=== PATIENT | female | born 1940 | race American Indian/Alaskan Native ===

== ENCOUNTER 2021-07-23 16:47 | Inpatient (IN) | payer MEDICARE ==
[2021-07-23] MEDS: traZODone 50 MG TAB PO SCH (22:41)
[2021-07-24] MEDS ORDERED: NON-FORMULARY EACH (Insulin Aspart (Nf) 100 UNIT/ML Units) SQ PRN (08:29)
[2021-07-24] MEDS ORDERED: ACETAMINOPHEN PO SCH (08:30)
[2021-07-24] MEDS ORDERED: OXYCODONE HCL PO SCH (08:30)
[2021-07-24] MEDS ORDERED: [UNRECOGNIZED DRUG - OTHER] PO SCH (08:30)
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
[2021-07-24] MEDS ORDERED: oxyCODONE 5 MG TAB PO PRN (09:16)
[2021-07-24] MEDS: SERTRALINE 25 MG TAB PO SCH (09:45)
[2021-07-24] MEDS: oxyCODONE 5 MG TAB PO PRN ×2 (09:49→21:22)
[2021-07-24] MEDS: ACETAMINOPHEN 325 MG TAB PO PRN (10:00)
[2021-07-24] MEDS ORDERED: oxyCODONE 5 MG TAB PO SCH (12:00)
[2021-07-24] MEDS ORDERED: ACETAMINOPHEN 325 MG TAB PO SCH (12:00)
[2021-07-24] MEDS: LEVOTHYROXINE 100 MCG TAB PO SCH (13:19)
[2021-07-24] MEDS: MELOXICAM 7.5 MG TAB PO SCH (13:25)
[2021-07-24] MEDS: GABAPENTIN 300 MG CAP PO SCH ×2 (13:25→20:36)
[2021-07-24] MEDS ORDERED: DEXTROSE 50% IN WATER (25GM) 50 ML SYRINGE IV PRN (14:17)
--- NOTE | 2021-07-24 14:20 | Consultation ---
History of Present Illness - Reason for Consult Consult date: 07/24/21 medical management Requesting physician: BOOM GOLD - History of Present Illness 81-year-old female with pmhx of DM2, hypothyroidism, recent left knee procedure admitted for acute psychosis. Per report, patient hallucinating, hearing voices, seeing things and threatening daughter and caregiver. Internal medicine service consulted for medical management. On my encounter, patient only comp laint was pain in left knee this AM. She states that pain has been uncontrolled. She states that the only pain medication should like to avoid is oxycontin as "the last place I got that, I got short of breath". Patient states she is otherwise recovering well. She states that since the procedure she has been able to walk properly. Patient denied any [place], CP, SOB, N/V/D/C, abdominal pain. Remainder of ROS negative except for stated above. Regarding her type 2 diabetes, the patient states she takes 10 units regular insulin with meals and 20 units long acting at night. She could not recall her A1c or fasting blood sugars. Past History Past Medical History: diabetes, hypothyroidism Past Surgical History: total knee replacement Social history: smoking (smokes when she can but does not smoke consistently.) Family history: no significant family history Medications and Allergies Allergies Allergy/AdvReac Type Severity Reaction Status Date / Time Penicillins Allergy Hives Verified 03/03/18 02:43 Home Medications Medication Instructions Recorded Confirmed Last Taken Type Gabapentin 300 mg PO TID 07/23/21 07/23/21 Unknown History Insulin Aspart (Nf) [NovoLOG 100 1 - 6 units SQ UNK PRN 07/23/21 07/23/21 Unknown History UNITS/ML VIAL] Levothyroxine [Synthroid] 100 mcg PO QAM 07/23/21 07/23/21 07/22/21 History Meloxicam [Mobic] 7.5 mg PO QDAY 07/23/21 07/23/21 Unknown History Oxycodone HCl/Acetaminophen 1 - 2 tab PO Q6H 07/23/21 07/23/21 Unknown History [Oxycodone-Acetaminophn 7.5-325] Quetiapine Fumarate [SEROquel] 50 mg PO QHS 07/23/21 07/23/21 Unknown History Sertraline [Zoloft] 25 mg PO QDAY 07/23/21 07/24/21 Unknown History hydrOXYzine HCL [Atarax] 25 mg PO QHS 07/23/21 07/23/21 Unknown History Active Meds: Active Medications Acetaminophen (Acetaminophen 325 Mg Tab) 325 mg PO Q4H PRN PRN Reason: Pain, Moderate (4-6) Last Admin: 07/24/21 10:00 Dose: 325 mg Gabapentin (Gabapentin 300 Mg Cap) 300 mg PO TID [facility] Last Admin: 07/24/21 13:25 Dose: 300 mg Hydroxyzine HCl (Hydroxyzine Hcl 25 Mg Tab) 25 mg PO QHS [facility] Levothyroxine Sodium (Levothyroxine 100 Mcg Tab) 100 mcg PO DAILY@0600 [facility] Last Admin: 07/24/21 13:19 Dose: 100 mcg Meloxicam (Meloxicam 7.5 Mg Tab) 7.5 mg PO QDAY [facility] Last Admin: 07/24/21 13:25 Dose: 7.5 mg Miscellaneous Medication (Insulin Aspart (Nf)) 1 - 6 units SQ UNK PRN PRN Reason: Diabetes Oxycodone HCl (Oxycodone 5 Mg Tab) 7.5 mg PO Q4H PRN PRN Reason: Pain, Moderate (4-6) Last Admin: 07/24/21 09:49 Dose: 7.5 mg Quetiapine Fumarate (Quetiapine 25 Mg Tab) 50 mg PO QHS [facility] Sertraline HCl (Sertraline 25 Mg Tab) 25 mg PO QDAY [facility] Last Admin: 07/24/21 09:45 Dose: 25 mg Trazodone HCl (Trazodone 50 Mg Tab) 50 mg PO QHS [facility] Last Admin: 07/23/21 22:41 Dose: 50 mg Review of Systems Integumentary: other (left knee pain.) Exam - Physical Exam Narrative exam: Physical Exam: VITAL SIGNS: Reviewed. GENERAL: The patient appears normally developed, Vital signs as documented. pleasant elderly women HEAD: No signs of head trauma. EYES: Pupils are equal. Extraocular motions intact. EARS: Hearing grossly intact. MOUTH: Oropharynx is normal. NECK: No adenopathy, no JVD. CHEST: Chest with clear breath sounds bilaterally. No wheezes, rales, or rhonchi. CARDIAC: Regular rate and rhythm. S1 and S2, without murmurs, gallops, or rubs. VASCULAR: No Edema. Peripheral pulses normal and equal in all extremities. ABDOMEN: Soft, non tender and non distended. No rebound or guarding, and no masses palpated. Bowel Sounds normal. MUSCULOSKELETAL: Good range of motion of all major joints. Extremities without clubbing, cyanosis or edema. NEUROLOGIC EXAM: Alert and oriented x 4. no focal sensory or strength deficits. PSYCHIATRIC: Mood normal at the time of encounter. SKIN: detail exam as documented in skin assessment. healing surgical scar left knee with overlying dressing. - Constitutional Vitals: Temp Pulse Resp BP Pulse Ox 98.1 F 88 17 149/79 97 07/23/21 19:25 07/23/21 19:25 07/23/21 19:25 07/23/21 19:25 07/23/21 19:25 Results - Labs Labs: Abnormal lab results 07/24/21 07/24/21 07/24/21 Range/Units 00:48 05:58 11:26 POC Glucose 209 H 201 H 230 H (70-105) mg/dL Assessment and Plan #Acute psychosis #history of Dementia #Type 2 Diabetes Mellitus #Hypothyroidism #Recent left knee repair in june 2021 #Advance care planning Disease education conducted, care plan discussed, diagnoses discussed, prognosis discussed, patient is full code. Patient acknowledged understanding and agreement with care plan, +30 minutes. Plan -Psychiatric medication management per inpatient psych service -Monitor blood pressure daily - accuchecks ac/hs -Monitor QTC - Blood sugar in 230's, only sliding scale insulin ordered at this time. - Home regimen regular insulin 10 units ac and long acting 20 units qhs. Can reintroduce for better control - agree with wound care consultation for left knee incision. - percocet for pain control, follow up renal profile, if renal function ok, can add toradol. - Resume home levothyroxine. - agree with CBC, CMP, lipid panel, tsh, a1c ordered, will follow up. Internal medicine service will continue to follow
[2021-07-24] MEDS ORDERED: DEXTROSE 10% *Hypoglycemia IV PRN (15:00)
[2021-07-24] MEDS: INSULIN LISPRO 100 UNIT/ML SUB-Q SCH ×3 (17:00→22:33)
[2021-07-24] MEDS: traZODone 50 MG TAB PO SCH (21:26)
[2021-07-24] MEDS: hydrOXYzine HCL 25 MG TAB PO SCH (21:27)
[2021-07-24] MEDS: QUEtiapine 25 MG TAB PO SCH (21:27)
[2021-07-24 21:59] LABS: Basophils # (Auto) 0.1 K/mm3 (0.0-0.1); Basophils % (Auto) 1.1 % (0.0-1.8); Eosinophils # (Auto) 0.1 K/mm3 (0.0-0.4); Eosinophils % (Auto) 1.1 % (0.0-4.3); Hematocrit 31.8 % (30.3-42.9); Hemoglobin 9.9 gm/dl (10.1-14.3); Mean Corpuscular HGB Conc 31 % (30-34); Mean Corpuscular Volume 80 fl (79-97); Monocytes # (Auto) 0.6 K/mm3 (0.0-0.8); Monocytes % (Auto) 8.8 % (0.0-7.3); Platelet Count 413 K/mm3 (140-440); Red Blood Count 3.96 M/mm3 (3.65-5.03)
[2021-07-24] MEDS ORDERED: NON-FORMULARY EACH (Quetiapine Fumarate [Seroquel] 50 MG Tablet) PO SCH (22:00)
[2021-07-24 22:17] LABS: Albumin 3.9 g/dL (3.9-5); Calcium 9.6 mg/dL (8.4-10.2); Chol/HDL Ratio 2.63 %
[2021-07-24 22:46] LABS: Hepatitis B Surface Antigen Non-Reactive (Negative); Hepatitis C Virus Antibody Non-Reactive (NonReactive)
[2021-07-25] MEDS: LEVOTHYROXINE 100 MCG TAB PO SCH (05:45)
[2021-07-25] MEDS: INSULIN LISPRO 100 UNIT/ML SUB-Q SCH ×4 (08:40→21:08)
[2021-07-25] MEDS: MELOXICAM 7.5 MG TAB PO SCH (09:00)
[2021-07-25] MEDS: SERTRALINE 25 MG TAB PO SCH (09:00)
[2021-07-25] MEDS: oxyCODONE 5 MG TAB PO PRN ×2 (09:00→13:27)
[2021-07-25] MEDS: GABAPENTIN 300 MG CAP PO SCH ×3 (09:02→20:26)
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
[2021-07-25] MEDS: traZODone 50 MG TAB PO SCH (21:07)
[2021-07-25] MEDS: hydrOXYzine HCL 25 MG TAB PO SCH (21:07)
[2021-07-25] MEDS: QUEtiapine 25 MG TAB PO SCH (21:07)
[2021-07-26] MEDS: LEVOTHYROXINE 100 MCG TAB PO SCH (05:52)
[2021-07-26] MEDS: INSULIN LISPRO 100 UNIT/ML SUB-Q SCH ×4 (08:08→21:04)
[2021-07-26] MEDS: GABAPENTIN 300 MG CAP PO SCH ×3 (08:09→20:31)
[2021-07-26] MEDS: oxyCODONE 5 MG TAB PO PRN ×3 (08:30→21:04)
--- NOTE | 2021-07-26 09:03 | Progress Note ---
Subjective Date of service: 07/26/21 Subjective Comment: 07/26/21: The patient was seen today, she patient complain of knee pain but states she feels better " I slept like a log." She continues to talk about the people at her assisted living and how they plan it. She denies any current suicidal/homicidal ideation and denies hallucinations. 07/25/21: The patient was seen eating breakfast. She is calm but continues to be paranoid " who planned it? they were putting something in my coffee, I know you think I'm crazy. " The patient reports sleep and appetite as good. She denies any current suicidal/homicidal ideation and denies hallucinations. REVIEW OF SYSTEMS Constitutional: Negative for weight loss ENT: Negative for stridor Respiratory: Negative for cough or hemoptysis All other systems reviewed and are negative MENTAL STATUS EXAMINATION General Appearance and Behavior: Age appropriate, good hygiene, wearing appropriate clothes, fair eye contact, cooperative, trembling Cooperation: Participating/engaged, but Guarded Psychomotor Behavior: Psychomotor normal Mood: "ok" Affect and affective range: constricted Thought Process: illogical Thought Content: Paranoid Speech: normal tone and pace Suicidal Ideation: Denies Homicidal Ideation: Denies Denies Hallucinations: Denies Impulse Control: limited Insight and Judgment: Poor insight and judgment Memory: Limited Attention: Divided Orientation: Alert, oriented Assessment and Plan Neurocognitive with behavioral disturbance Treatment Plan Patient admitted for inpatient psychiatric evaluation, medication adjustment and close monitoring The patient's behavior, mood, sleep and appetite will be closely monitored. Patient enrolled in individual and group therapeutic sessions and encouraged to attend. Patient provided with a safe and structured environment. Patient's physical health needs will be addressed by the Hospitalist. Hospitalist Consulted Labs including CBC, CMP, Lipid profile and Hemoglobin A1C levels ordered for baseline reference Social Assessment will be completed and the Asbestos Shingle Inspector will work with patient and family to ensure a suitable and safe disposition Medication adjustment will be made as clinically indicated Continue meds Usual Wellness Cheondoism/Preservation: - Start Trazodone 50 mg po QHS & 50 mg po QHS PRN between 10 PM & 2 AM for insomnia - Start Melatonin 5 mg po QHS to promote circadian rhythm The patient agreed on the treatment plan, understood the risk, benefit, alternative treatment, potential consequence of no treatment, and gave informed consent. Estimated days:6 Post hospital care: primary care provider, psychiatric provider Case staffed with Dr. Montiel Legal Status: Voluntary Reaction to Hospitalization: Accepting Medications and Allergies Medications and Allergies Allergies Allergy/AdvReac Type Severity Reaction Status Date / Time Penicillins Allergy Hives Verified 03/03/18 02:43 Home Medications Medication Instructions Recorded Confirmed Last Taken Type Gabapentin 300 mg PO TID 07/23/21 07/23/21 Unknown History Insulin Aspart (Nf) [NovoLOG 100 1 - 6 units SQ UNK PRN 07/23/21 07/23/21 Unknown History UNITS/ML VIAL] Levothyroxine [Synthroid] 100 mcg PO QAM 07/23/21 07/23/21 07/22/21 History Meloxicam [Mobic] 7.5 mg PO QDAY 07/23/21 07/23/21 Unknown History Oxycodone HCl/Acetaminophen 1 - 2 tab PO Q6H 07/23/21 07/23/21 Unknown History [Oxycodone-Acetaminophn 7.5-325] Quetiapine Fumarate [SEROquel] 50 mg PO QHS 07/23/21 07/23/21 Unknown History Sertraline [Zoloft] 25 mg PO QDAY 07/23/21 07/24/21 Unknown History hydrOXYzine HCL [Atarax] 25 mg PO QHS 07/23/21 07/23/21 Unknown History Active Meds: Active Medications Acetaminophen (Acetaminophen 325 Mg Tab) 325 mg PO Q4H PRN PRN Reason: Pain, Moderate (4-6) Last Admin: 07/24/21 10:00 Dose: 325 mg Dextrose (Dextrose 10% *Hypoglycemia) 0 ml IV PRN PRN PRN Reason: Hypoglycemia Gabapentin (Gabapentin 300 Mg Cap) 300 mg PO TID [facility] Last Admin: 07/26/21 08:09 Dose: 300 mg Hydroxyzine HCl (Hydroxyzine Hcl 25 Mg Tab) 25 mg PO QHS [facility] Last Admin: 07/25/21 21:07 Dose: 25 mg Insulin Human Lispro (Insulin Lispro 100 Unit/Ml) 0 unit SUB-Q [facility]; Protocol Last Admin: 07/26/21 08:08 Dose: 2 unit Levothyroxine Sodium (Levothyroxine 100 Mcg Tab) 100 mcg PO DAILY@0600 [facility] Last Admin: 07/26/21 05:52 Dose: 100 mcg Meloxicam (Meloxicam 7.5 Mg Tab) 7.5 mg PO QDAY [facility] Last Admin: 07/25/21 09:00 Dose: 7.5 mg Oxycodone HCl (Oxycodone 5 Mg Tab) 7.5 mg PO Q4H PRN PRN Reason: Pain, Moderate (4-6) Last Admin: 07/26/21 08:30 Dose: 7.5 mg Quetiapine Fumarate (Quetiapine 25 Mg Tab) 50 mg PO QHS [facility] Last Admin: 07/25/21 21:07 Dose: 50 mg Sertraline HCl (Sertraline 25 Mg Tab) 25 mg PO QDAY [facility] Last Admin: 07/25/21 09:00 Dose: 25 mg Trazodone HCl (Trazodone 50 Mg Tab) 50 mg PO QHS [facility] Last Admin: 07/25/21 21:07 Dose: 50 mg Results - Results Labs/Vitals: Laboratory Last Values WBC 7.1 K/mm3 (4.5-11.0) 07/24/21 20:58 RBC 3.96 M/mm3 (3.65-5.03) 07/24/21 20:58 Hgb 9.9 gm/dl (10.1-14.3) L 07/24/21 20:58 Hct 31.8 % (30.3-42.9) 07/24/21 20:58 MCV 80 fl (79-97) 07/24/21 20:58 MCH 25 pg (28-32) L 07/24/21 20:58 MCHC 31 % (30-34) 07/24/21 20:58 RDW 15.0 % (13.2-15.2) 07/24/21 20:58 Plt Count 413 K/mm3 (140-440) 07/24/21 20:58 Lymph % (Auto) 28.0 % (13.4-35.0) 07/24/21 20:58 [place] % (Auto) 8.8 % (0.0-7.3) H 07/24/21 20:58 Eos % (Auto) 1.1 % (0.0-4.3) 07/24/21 20:58 Baso % (Auto) 1.1 % (0.0-1.8) 07/24/21 20:58 Lymph # (Auto) 2.0 K/mm3 (1.2-5.4) 07/24/21 20:58 [place] # (Auto) 0.6 K/mm3 (0.0-0.8) 07/24/21 20:58 Eos # (Auto) 0.1 K/mm3 (0.0-0.4) 07/24/21 20:58 Baso # (Auto) 0.1 K/mm3 (0.0-0.1) 07/24/21 20:58 Seg Neutrophils % 61.0 % (40.0-70.0) 07/24/21 20:58 Seg Neutrophils # 4.3 K/mm3 (1.8-7.7) 07/24/21 20:58 Sodium 135 mmol/L (137-145) L 07/24/21 20:58 Potassium 4.0 mmol/L (3.6-5.0) 07/24/21 20:58 Chloride 96.7 mmol/L (98-107) L 07/24/21 20:58 Carbon Dioxide 25 mmol/L (22-30) 07/24/21 20:58 Anion Gap 17 mmol/L 07/24/21 20:58 BUN 26 mg/dL (7-17) H 07/24/21 20:58 Creatinine 1.4 mg/dL (0.6-1.2) H 07/24/21 20:58 Estimated GFR 43 ml/min 07/24/21 20:58 BUN/Creatinine Ratio 19 % 07/24/21 20:58 Glucose 209 mg/dL (65-100) H 07/24/21 20:58 POC Glucose 182 mg/dL (70-105) H 07/26/21 07:31 Hemoglobin A1c 8.6 % (4-6) H 07/24/21 20:58 Calcium 9.6 mg/dL (8.4-10.2) 07/24/21 20:58 Total Bilirubin 0.30 mg/dL (0.1-1.2) 07/24/21 20:58 AST 22 units/L (5-40) 07/24/21 20:58 ALT 16 units/L (7-56) 07/24/21 20:58 Alkaline Phosphatase 79 units/L (35-129) 07/24/21 20:58 Total Protein 7.3 g/dL (6.3-8.2) 07/24/21 20:58 Albumin 3.9 g/dL (3.9-5) 07/24/21 20:58 Albumin/Globulin Ratio 1.1 % 07/24/21 20:58 Triglycerides 126 mg/dL (2-149) 07/24/21 20:58 Cholesterol 182 mg/dL (50-199) 07/24/21 20:58 LDL Cholesterol Direct 92 mg/dL (50-130) 07/24/21 20:58 HDL Cholesterol 69 mg/dL (40-59) H 07/24/21 20:58 Cholesterol/HDL Ratio 2.63 % 07/24/21 20:58 TSH 3.860 mlU/mL (0.270-4.200) 07/24/21 20:58 Hepatitis A IgM Ab Non-reactive (NonReactive) 07/24/21 20:58 Hep Bs Antigen Non-reactive (Negative) 07/24/21 20:58 Hep B Core IgM Ab Non-reactive (NonReactive) 07/24/21 20:58 Hepatitis C Antibody Non-reactive (NonReactive) 07/24/21 20:58 Last Vital Signs Temp 98.2 F 07/25/21 19:41 Pulse 71 07/25/21 19:41 Resp 18 07/26/21 08:30 BP 108/47 07/25/21 19:41 Pulse Ox 94 07/25/21 19:41
[2021-07-26] MEDS: MELOXICAM 7.5 MG TAB PO SCH (09:06)
[2021-07-26] MEDS: SERTRALINE 25 MG TAB PO SCH (09:06)
[2021-07-26] MEDS: ACETAMINOPHEN 325 MG TAB PO PRN (13:46)
[2021-07-26] MEDS: hydrOXYzine HCL 25 MG TAB PO SCH (21:03)
[2021-07-26] MEDS: traZODone 50 MG TAB PO SCH (21:03)
[2021-07-26] MEDS: QUEtiapine 25 MG TAB PO SCH (21:04)
[2021-07-27] MEDS: LEVOTHYROXINE 100 MCG TAB PO SCH (05:57)
[2021-07-27] MEDS: INSULIN LISPRO 100 UNIT/ML SUB-Q SCH ×4 (07:23→21:50)
[2021-07-27] MEDS: GABAPENTIN 300 MG CAP PO SCH ×3 (07:24→20:28)
--- NOTE | 2021-07-27 07:44 | Event Note ---
Date: 07/27/21 Labwork reviewed. hgb A1c 8.6. Patient takes 20 U lantus at night. However diet is likely better controlled in hospital setting. Will order half dose of home regimen with lantus 10 units qhs. Upon discharge would recommend continuation of home lantus dose. Sugars overall satisfactory. IM service will sign off. please reconsult if additional assistance needed.
[2021-07-27] MEDS: MELOXICAM 7.5 MG TAB PO SCH (09:26)
[2021-07-27] MEDS: SERTRALINE 25 MG TAB PO SCH (09:26)
[2021-07-27] MEDS: oxyCODONE 5 MG TAB PO PRN (09:27)
[2021-07-27] MEDS: ACETAMINOPHEN 325 MG TAB PO PRN (09:28)
--- NOTE | 2021-07-27 10:27 | Progress Note ---
Subjective Date of service: 07/27/21 Principal diagnosis: Neurogognitive w/behavioral disturbance Subjective Comment: The patient was seen today. She says she slept good. The patient says she feels okay. She denies SI/HI. She says "never in my life." When asking about hallucinations, the patient replies "seeing things since I was a little girl." She says "but it's not like what you think. I see stuff before it happens." 07/26/21: The patient was seen today, she patient complain of knee pain but states she feels better " I slept like a log." She continues to talk about the people at her assisted living and how they plan it. She denies any current suicidal/homicidal ideation and denies hallucinations. 07/25/21: The patient was seen eating breakfast. She is calm but continues to be paranoid " who planned it? they were putting something in my coffee, I know you think I'm crazy. " The patient reports sleep and appetite as good. She denies any current suicidal/homicidal ideation and denies hallucinations. REVIEW OF SYSTEMS Constitutional: Negative for weight loss ENT: Negative for stridor Respiratory: Negative for cough or hemoptysis All other systems reviewed and are negative MENTAL STATUS EXAMINATION General Appearance and Behavior: Age appropriate, good hygiene, wearing appropriate clothes, fair eye contact, cooperative, trembling Cooperation: Participating/engaged, but Guarded Psychomotor Behavior: Psychomotor normal Mood: "ok" Affect and affective range: constricted Thought Process: illogical Thought Content: Paranoid Speech: normal tone and pace Suicidal Ideation: Denies Homicidal Ideation: Denies Denies Hallucinations: Denies Impulse Control: limited Insight and Judgment: Poor insight and judgment Memory: Limited Attention: Divided Orientation: Alert, oriented Assessment and Plan Neurocognitive with behavioral disturbance Treatment Plan Patient admitted for inpatient psychiatric evaluation, medication adjustment and close monitoring The patient's behavior, mood, sleep and appetite will be closely monitored. Patient enrolled in individual and group therapeutic sessions and encouraged to attend. Patient provided with a safe and structured environment. Patient's physical health needs will be addressed by the Hospitalist. Hospitalist Consulted Labs including CBC, CMP, Lipid profile and Hemoglobin A1C levels ordered for baseline reference Social Assessment will be completed and the Windlace Machine Operator will work with patient and family to ensure a suitable and safe disposition Medication adjustment will be made as clinically indicated Increase Seroquel 50mg po BID Usual Wellness Muslim/Preservation: - Start Trazodone 50 mg po QHS & 50 mg po QHS PRN between 10 PM & 2 AM for insomnia - Start Melatonin 5 mg po QHS to promote circadian rhythm The patient agreed on the treatment plan, understood the risk, benefit, alternative treatment, potential consequence of no treatment, and gave informed consent. Estimated days:6 Post hospital care: primary care provider, psychiatric provider Case staffed with Dr. Montiel Medications and Allergies Allergies Allergy/AdvReac Type Severity Reaction Status Date / Time Penicillins Allergy Hives Verified 03/03/18 02:43 Home Medications Medication Instructions Recorded Confirmed Last Taken Type Gabapentin 300 mg PO TID 07/23/21 07/23/21 Unknown History Insulin Aspart (Nf) [NovoLOG 100 1 - 6 units SQ UNK PRN 07/23/21 07/23/21 Unknown History UNITS/ML VIAL] Levothyroxine [Synthroid] 100 mcg PO QAM 07/23/21 07/23/21 07/22/21 History Meloxicam [Mobic] 7.5 mg PO QDAY 07/23/21 07/23/21 Unknown History Oxycodone HCl/Acetaminophen 1 - 2 tab PO Q6H 07/23/21 07/23/21 Unknown History [Oxycodone-Acetaminophn 7.5-325] Quetiapine Fumarate [SEROquel] 50 mg PO QHS 07/23/21 07/23/21 Unknown History Sertraline [Zoloft] 25 mg PO QDAY 07/23/21 07/24/21 Unknown History hydrOXYzine HCL [Atarax] 25 mg PO QHS 07/23/21 07/23/21 Unknown History Active Meds: Active Medications Acetaminophen (Acetaminophen 325 Mg Tab) 325 mg PO Q4H PRN PRN Reason: Pain, Moderate (4-6) Last Admin: 07/27/21 09:28 Dose: 325 mg Dextrose (Dextrose 10% *Hypoglycemia) 0 ml IV PRN PRN PRN Reason: Hypoglycemia Gabapentin (Gabapentin 300 Mg Cap) 300 mg PO TID [facility] Last Admin: 07/27/21 07:24 Dose: 300 mg Hydroxyzine HCl (Hydroxyzine Hcl 25 Mg Tab) 25 mg PO QHS [facility] Last Admin: 07/26/21 21:03 Dose: 25 mg Insulin Glargine (Insulin Glargine 100 Units/Ml) [facility] Insulin Human Lispro (Insulin Lispro 100 Unit/Ml) 0 unit SUB-Q [facility]; Protocol Last Admin: 07/27/21 07:23 Dose: 2 unit Levothyroxine Sodium (Levothyroxine 100 Mcg Tab) 100 mcg PO DAILY@0600 [facility] Last Admin: 07/27/21 05:57 Dose: 100 mcg Meloxicam (Meloxicam 7.5 Mg Tab) 7.5 mg PO QDAY [facility] Last Admin: 07/27/21 09:26 Dose: 7.5 mg Oxycodone HCl (Oxycodone 5 Mg Tab) 7.5 mg PO Q4H PRN PRN Reason: Pain, Moderate (4-6) Last Admin: 07/27/21 09:27 Dose: 7.5 mg Quetiapine Fumarate (Quetiapine 25 Mg Tab) 50 mg PO QHS [facility] Last Admin: 07/26/21 21:04 Dose: 50 mg Sertraline HCl (Sertraline 25 Mg Tab) 25 mg PO QDAY [facility] Last Admin: 07/27/21 09:26 Dose: 25 mg Trazodone HCl (Trazodone 50 Mg Tab) 50 mg PO QHS [facility] Last Admin: 07/26/21 21:03 Dose: 50 mg Results - Results Labs/Vitals: Laboratory Last Values WBC 7.1 K/mm3 (4.5-11.0) 07/24/21 20:58 RBC 3.96 M/mm3 (3.65-5.03) 07/24/21 20:58 Hgb 9.9 gm/dl (10.1-14.3) L 07/24/21 20:58 Hct 31.8 % (30.3-42.9) 07/24/21 20:58 MCV 80 fl (79-97) 07/24/21 20:58 MCH 25 pg (28-32) L 07/24/21 20:58 MCHC 31 % (30-34) 07/24/21 20:58 RDW 15.0 % (13.2-15.2) 07/24/21 20:58 Plt Count 413 K/mm3 (140-440) 07/24/21 20:58 Lymph % (Auto) 28.0 % (13.4-35.0) 07/24/21 20:58 [place] % (Auto) 8.8 % (0.0-7.3) H 07/24/21 20:58 Eos % (Auto) 1.1 % (0.0-4.3) 07/24/21 20:58 Baso % (Auto) 1.1 % (0.0-1.8) 07/24/21 20:58 Lymph # (Auto) 2.0 K/mm3 (1.2-5.4) 07/24/21 20:58 [place] # (Auto) 0.6 K/mm3 (0.0-0.8) 07/24/21 20:58 Eos # (Auto) 0.1 K/mm3 (0.0-0.4) 07/24/21 20:58 Baso # (Auto) 0.1 K/mm3 (0.0-0.1) 07/24/21 20:58 Seg Neutrophils % 61.0 % (40.0-70.0) 07/24/21 20:58 Seg Neutrophils # 4.3 K/mm3 (1.8-7.7) 07/24/21 20:58 Sodium 135 mmol/L (137-145) L 07/24/21 20:58 Potassium 4.0 mmol/L (3.6-5.0) 07/24/21 20:58 Chloride 96.7 mmol/L (98-107) L 07/24/21 20:58 Carbon Dioxide 25 mmol/L (22-30) 07/24/21 20:58 Anion Gap 17 mmol/L 07/24/21 20:58 BUN 26 mg/dL (7-17) H 07/24/21 20:58 Creatinine 1.4 mg/dL (0.6-1.2) H 07/24/21 20:58 Estimated GFR 43 ml/min 07/24/21 20:58 BUN/Creatinine Ratio 19 % 07/24/21 20:58 Glucose 209 mg/dL (65-100) H 07/24/21 20:58 POC Glucose 197 mg/dL (70-105) H 07/27/21 06:46 Hemoglobin A1c 8.6 % (4-6) H 07/24/21 20:58 Calcium 9.6 mg/dL (8.4-10.2) 07/24/21 20:58 Total Bilirubin 0.30 mg/dL (0.1-1.2) 07/24/21 20:58 AST 22 units/L (5-40) 07/24/21 20:58 ALT 16 units/L (7-56) 07/24/21 20:58 Alkaline Phosphatase 79 units/L (35-129) 07/24/21 20:58 Total Protein 7.3 g/dL (6.3-8.2) 07/24/21 20:58 Albumin 3.9 g/dL (3.9-5) 07/24/21 20:58 Albumin/Globulin Ratio 1.1 % 07/24/21 20:58 Triglycerides 126 mg/dL (2-149) 07/24/21 20:58 Cholesterol 182 mg/dL (50-199) 07/24/21 20:58 LDL Cholesterol Direct 92 mg/dL (50-130) 07/24/21 20:58 HDL Cholesterol 69 mg/dL (40-59) H 07/24/21 20:58 Cholesterol/HDL Ratio 2.63 % 07/24/21 20:58 TSH 3.860 mlU/mL (0.270-4.200) 07/24/21 20:58 Hepatitis A IgM Ab Non-reactive (NonReactive) 07/24/21 20:58 Hep Bs Antigen Non-reactive (Negative) 07/24/21 20:58 Hep B Core IgM Ab Non-reactive (NonReactive) 07/24/21 20:58 Hepatitis C Antibody Non-reactive (NonReactive) 07/24/21 20:58 Last Vital Signs Temp 99.0 F 07/27/21 08:37 Pulse 81 07/27/21 08:37 Resp 18 07/27/21 08:37 BP 113/51 07/27/21 08:37 Pulse Ox 97 07/27/21 08:37
[2021-07-27] MEDS: QUEtiapine 25 MG TAB PO SCH ×2 (13:14→21:19)
[2021-07-27] MEDS: traZODone 50 MG TAB PO SCH (21:19)
[2021-07-27] MEDS: hydrOXYzine HCL 25 MG TAB PO SCH (21:20)
[2021-07-27] MEDS: INSULIN GLARGINE 100 UNITS/ML SUB-Q SCH (21:49)
[2021-07-28] MEDS: LEVOTHYROXINE 100 MCG TAB PO SCH (06:02)
[2021-07-28] MEDS: GABAPENTIN 300 MG CAP PO SCH ×3 (08:31→21:32)
--- NOTE | 2021-07-28 08:50 | Progress Note ---
Subjective Date of service: 07/28/21 Principal diagnosis: Neurogognitive w/behavioral disturbance Subjective Comment: The patient was seen today. She says she is doing good except for pain in her knee. She denies SI/HI. She says "heck no. I'm 81 and have never thought about no mess like that." She denies hallucinations of any kind. 07/27 The patient was seen today. She says she slept good. The patient says she feels okay. She denies SI/HI. She says "never in my life." When asking about hallucinations, the patient replies "seeing things since I was a little girl." She says "but it's not like what you think. I see stuff before it happens." 07/26/21: The patient was seen today, she patient complain of knee pain but states she feels better " I slept like a log." She continues to talk about the people at her assisted living and how they plan it. She denies any current suicidal/homicidal ideation and denies hallucinations. 07/25/21: The patient was seen eating breakfast. She is calm but continues to be paranoid " who planned it? they were putting something in my coffee, I know you think I'm crazy. " The patient reports sleep and appetite as good. She denies any current suicidal/homicidal ideation and denies hallucinations. REVIEW OF SYSTEMS Constitutional: Negative for weight loss ENT: Negative for stridor Respiratory: Negative for cough or hemoptysis All other systems reviewed and are negative MENTAL STATUS EXAMINATION General Appearance and Behavior: Age appropriate, good hygiene, wearing appropriate clothes, fair eye contact, cooperative, trembling Cooperation: Participating/engaged, but Guarded Psychomotor Behavior: Psychomotor normal Mood: "ok" Affect and affective range: constricted Thought Process: illogical Thought Content: Paranoid Speech: normal tone and pace Suicidal Ideation: Denies Homicidal Ideation: Denies Denies Hallucinations: Denies Impulse Control: limited Insight and Judgment: Poor insight and judgment Memory: Limited Attention: Divided Orientation: Alert, oriented Assessment and Plan Neurocognitive with behavioral disturbance Treatment Plan Patient admitted for inpatient psychiatric evaluation, medication adjustment and close monitoring The patient's behavior, mood, sleep and appetite will be closely monitored. Patient enrolled in individual and group therapeutic sessions and encouraged to attend. Patient provided with a safe and structured environment. Patient's physical health needs will be addressed by the Hospitalist. Hospitalist Consulted Labs including CBC, CMP, Lipid profile and Hemoglobin A1C levels ordered for baseline reference Social Assessment will be completed and the Planting Machine Operator will work with patient and family to ensure a suitable and safe disposition Medication adjustment will be made as clinically indicated Increase Seroquel 50mg po BID yesterday No changes made today. Usual Wellness Taoist/Preservation: - Start Trazodone 50 mg po QHS & 50 mg po QHS PRN between 10 PM & 2 AM for insomnia - Start Melatonin 5 mg po QHS to promote circadian rhythm The patient agreed on the treatment plan, understood the risk, benefit, alternative treatment, potential consequence of no treatment, and gave informed consent. Estimated days:6 Post hospital care: primary care provider, psychiatric provider Case staffed with Dr. Montiel Medications and Allergies Allergies Allergy/AdvReac Type Severity Reaction Status Date / Time Penicillins Allergy Hives Verified 03/03/18 02:43 Home Medications Medication Instructions Recorded Confirmed Last Taken Type Gabapentin 300 mg PO TID 07/23/21 07/23/21 Unknown History Insulin Aspart (Nf) [NovoLOG 100 1 - 6 units SQ UNK PRN 07/23/21 07/23/21 Unknown History UNITS/ML VIAL] Levothyroxine [Synthroid] 100 mcg PO QAM 07/23/21 07/23/21 07/22/21 History Meloxicam [Mobic] 7.5 mg PO QDAY 07/23/21 07/23/21 Unknown History Oxycodone HCl/Acetaminophen 1 - 2 tab PO Q6H 07/23/21 07/23/21 Unknown History [Oxycodone-Acetaminophn 7.5-325] Quetiapine Fumarate [SEROquel] 50 mg PO QHS 07/23/21 07/23/21 Unknown History Sertraline [Zoloft] 25 mg PO QDAY 07/23/21 07/24/21 Unknown History hydrOXYzine HCL [Atarax] 25 mg PO QHS 07/23/21 07/23/21 Unknown History Active Meds: Active Medications Acetaminophen (Acetaminophen 325 Mg Tab) 325 mg PO Q4H PRN PRN Reason: Pain, Moderate (4-6) Last Admin: 07/27/21 09:28 Dose: 325 mg Dextrose (Dextrose 10% *Hypoglycemia) 0 ml IV PRN PRN PRN Reason: Hypoglycemia Gabapentin (Gabapentin 300 Mg Cap) 300 mg PO TID [facility] Last Admin: 07/28/21 08:31 Dose: 300 mg Hydroxyzine HCl (Hydroxyzine Hcl 25 Mg Tab) 25 mg PO QHS [facility] Last Admin: 07/27/21 21:20 Dose: 25 mg Insulin Glargine (Insulin Glargine 100 Units/Ml) [facility] Last Admin: 07/27/21 21:49 Dose: 10 units Insulin Human Lispro (Insulin Lispro 100 Unit/Ml) 0 unit SUB-Q [facility]; Protocol Last Admin: 07/27/21 21:50 Dose: 6 unit Levothyroxine Sodium (Levothyroxine 100 Mcg Tab) 100 mcg PO DAILY@0600 [facility] Last Admin: 07/28/21 06:02 Dose: 100 mcg Meloxicam (Meloxicam 7.5 Mg Tab) 7.5 mg PO QDAY [facility] Last Admin: 07/27/21 09:26 Dose: 7.5 mg Oxycodone HCl (Oxycodone 5 Mg Tab) 7.5 mg PO Q4H PRN PRN Reason: Pain, Moderate (4-6) Last Admin: 07/27/21 09:27 Dose: 7.5 mg Quetiapine Fumarate (Quetiapine 25 Mg Tab) 50 mg PO BID [facility] Last Admin: 07/27/21 21:19 Dose: 50 mg Sertraline HCl (Sertraline 25 Mg Tab) 25 mg PO QDAY [facility] Last Admin: 07/27/21 09:26 Dose: 25 mg Trazodone HCl (Trazodone 50 Mg Tab) 50 mg PO QHS [facility] Last Admin: 07/27/21 21:19 Dose: 50 mg Results - Results Labs/Vitals: Laboratory Last Values WBC 7.1 K/mm3 (4.5-11.0) 07/24/21 20:58 RBC 3.96 M/mm3 (3.65-5.03) 07/24/21 20:58 Hgb 9.9 gm/dl (10.1-14.3) L 07/24/21 20:58 Hct 31.8 % (30.3-42.9) 07/24/21 20:58 MCV 80 fl (79-97) 07/24/21 20:58 MCH 25 pg (28-32) L 07/24/21 20:58 MCHC 31 % (30-34) 07/24/21 20:58 RDW 15.0 % (13.2-15.2) 07/24/21 20:58 Plt Count 413 K/mm3 (140-440) 07/24/21 20:58 Lymph % (Auto) 28.0 % (13.4-35.0) 07/24/21 20:58 [place] % (Auto) 8.8 % (0.0-7.3) H 07/24/21 20:58 Eos % (Auto) 1.1 % (0.0-4.3) 07/24/21 20:58 Baso % (Auto) 1.1 % (0.0-1.8) 07/24/21 20:58 Lymph # (Auto) 2.0 K/mm3 (1.2-5.4) 07/24/21 20:58 [place] # (Auto) 0.6 K/mm3 (0.0-0.8) 07/24/21 20:58 Eos # (Auto) 0.1 K/mm3 (0.0-0.4) 07/24/21 20:58 Baso # (Auto) 0.1 K/mm3 (0.0-0.1) 07/24/21 20:58 Seg Neutrophils % 61.0 % (40.0-70.0) 07/24/21 20:58 Seg Neutrophils # 4.3 K/mm3 (1.8-7.7) 07/24/21 20:58 Sodium 135 mmol/L (137-145) L 07/24/21 20:58 Potassium 4.0 mmol/L (3.6-5.0) 07/24/21 20:58 Chloride 96.7 mmol/L (98-107) L 07/24/21 20:58 Carbon Dioxide 25 mmol/L (22-30) 07/24/21 20:58 Anion Gap 17 mmol/L 07/24/21 20:58 BUN 26 mg/dL (7-17) H 07/24/21 20:58 Creatinine 1.4 mg/dL (0.6-1.2) H 07/24/21 20:58 Estimated GFR 43 ml/min 07/24/21 20:58 BUN/Creatinine Ratio 19 % 07/24/21 20:58 Glucose 209 mg/dL (65-100) H 07/24/21 20:58 POC Glucose 217 mg/dL (70-105) H 07/28/21 07:50 Hemoglobin A1c 8.6 % (4-6) H 07/24/21 20:58 Calcium 9.6 mg/dL (8.4-10.2) 07/24/21 20:58 Total Bilirubin 0.30 mg/dL (0.1-1.2) 07/24/21 20:58 AST 22 units/L (5-40) 07/24/21 20:58 ALT 16 units/L (7-56) 07/24/21 20:58 Alkaline Phosphatase 79 units/L (35-129) 07/24/21 20:58 Total Protein 7.3 g/dL (6.3-8.2) 07/24/21 20:58 Albumin 3.9 g/dL (3.9-5) 07/24/21 20:58 Albumin/Globulin Ratio 1.1 % 07/24/21 20:58 Triglycerides 126 mg/dL (2-149) 07/24/21 20:58 Cholesterol 182 mg/dL (50-199) 07/24/21 20:58 LDL Cholesterol Direct 92 mg/dL (50-130) 07/24/21 20:58 HDL Cholesterol 69 mg/dL (40-59) H 07/24/21 20:58 Cholesterol/HDL Ratio 2.63 % 07/24/21 20:58 TSH 3.860 mlU/mL (0.270-4.200) 07/24/21 20:58 Hepatitis A IgM Ab Non-reactive (NonReactive) 07/24/21 20:58 Hep Bs Antigen Non-reactive (Negative) 07/24/21 20:58 Hep B Core IgM Ab Non-reactive (NonReactive) 07/24/21 20:58 Hepatitis C Antibody Non-reactive (NonReactive) 07/24/21 20:58 Last Vital Signs Temp 97.6 F 07/27/21 19:16 Pulse 78 07/27/21 19:16 Resp 18 07/27/21 19:16 BP 143/79 07/27/21 19:15 Pulse Ox 96 07/27/21 19:16
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
[2021-07-28] MEDS: SERTRALINE 25 MG TAB PO SCH (09:38)
[2021-07-28] MEDS: MELOXICAM 7.5 MG TAB PO SCH (09:39)
[2021-07-28] MEDS: QUEtiapine 25 MG TAB PO SCH ×2 (09:40→21:32)
[2021-07-28] MEDS: INSULIN LISPRO 100 UNIT/ML SUB-Q SCH ×4 (09:41→21:31)
[2021-07-28] MEDS: DIVALPROEX DR 125 MG TAB PO SCH ×2 (09:50→21:32)
[2021-07-28] MEDS: INSULIN GLARGINE 100 UNITS/ML SUB-Q SCH (21:30)
[2021-07-28] MEDS: hydrOXYzine HCL 25 MG TAB PO SCH (21:32)
[2021-07-28] MEDS: traZODone 50 MG TAB PO SCH (21:32)
[2021-07-29] MEDS: LEVOTHYROXINE 100 MCG TAB PO SCH (07:11)
[2021-07-29] MEDS: SERTRALINE 25 MG TAB PO SCH (09:21)
[2021-07-29] MEDS: QUEtiapine 25 MG TAB PO SCH ×2 (09:21→21:20)
[2021-07-29] MEDS: GABAPENTIN 300 MG CAP PO SCH ×3 (09:21→21:20)
[2021-07-29] MEDS: INSULIN LISPRO 100 UNIT/ML SUB-Q SCH ×4 (09:22→21:59)
[2021-07-29] MEDS: MELOXICAM 7.5 MG TAB PO SCH (09:22)
[2021-07-29] MEDS: DIVALPROEX DR 125 MG TAB PO SCH ×2 (09:22→21:21)
[2021-07-29] MEDS: oxyCODONE 5 MG TAB PO PRN (09:23)
[2021-07-29] MEDS: ACETAMINOPHEN 325 MG TAB PO PRN (09:24)
--- NOTE | 2021-07-29 09:56 | Progress Note ---
Subjective Date of service: 07/29/21 Principal diagnosis: Neurogognitive w/behavioral disturbance Subjective Comment: The patient was seen today. She is sleeping but easily arouses. She is calm and cooperative. She denies SI/HI or hallucinations of any kind. Staff says she presents as mild paranoid and delusional 07/28 The patient was seen today. She says she is doing good except for pain in her knee. She denies SI/HI. She says "heck no. I'm 81 and have never thought about no mess like that." She denies hallucinations of any kind. 07/27 The patient was seen today. She says she slept good. The patient says she feels okay. She denies SI/HI. She says "never in my life." When asking about hallucinations, the patient replies "seeing things since I was a little girl." She says "but it's not like what you think. I see stuff before it happens." 07/26/21: The patient was seen today, she patient complain of knee pain but states she feels better " I slept like a log." She continues to talk about the people at her assisted living and how they plan it. She denies any current suicidal/homicidal ideation and denies hallucinations. 07/25/21: The patient was seen eating breakfast. She is calm but continues to be paranoid " who planned it? they were putting something in my coffee, I know you think I'm crazy. " The patient reports sleep and appetite as good. She denies any current suicidal/homicidal ideation and denies hallucinations. REVIEW OF SYSTEMS Constitutional: Negative for weight loss ENT: Negative for stridor Respiratory: Negative for cough or hemoptysis All other systems reviewed and are negative MENTAL STATUS EXAMINATION General Appearance and Behavior: Age appropriate, good hygiene, wearing appropriate clothes, fair eye contact, cooperative, trembling Cooperation: Participating/engaged, but Guarded Psychomotor Behavior: Psychomotor normal Mood: "ok" Affect and affective range: constricted Thought Process: illogical Thought Content: Paranoid Speech: normal tone and pace Suicidal Ideation: Denies Homicidal Ideation: Denies Denies Hallucinations: Denies Impulse Control: limited Insight and Judgment: Poor insight and judgment Memory: Limited Attention: Divided Orientation: Alert, oriented Assessment and Plan Neurocognitive with behavioral disturbance Treatment Plan Patient admitted for inpatient psychiatric evaluation, medication adjustment and close monitoring The patient's behavior, mood, sleep and appetite will be closely monitored. Patient enrolled in individual and group therapeutic sessions and encouraged to attend. Patient provided with a safe and structured environment. Patient's physical health needs will be addressed by the Hospitalist. Hospitalist Consulted Labs including CBC, CMP, Lipid profile and Hemoglobin A1C levels ordered for baseline reference Social Assessment will be completed and the Control Systems Developer will work with patient and family to ensure a suitable and safe disposition Medication adjustment will be made as clinically indicated Continue Seroquel 50mg po BID Usual Wellness Zoroastrianism/Preservation: - Start Trazodone 50 mg po QHS & 50 mg po QHS PRN between 10 PM & 2 AM for insomnia - Start Melatonin 5 mg po QHS to promote circadian rhythm The patient agreed on the treatment plan, understood the risk, benefit, alternative treatment, potential consequence of no treatment, and gave informed consent. Estimated days:6 Post hospital care: primary care provider, psychiatric provider Case staffed with Dr. Montiel Medications and Allergies Allergies Allergy/AdvReac Type Severity Reaction Status Date / Time Penicillins Allergy Hives Verified 03/03/18 02:43 Home Medications Medication Instructions Recorded Confirmed Last Taken Type Gabapentin 300 mg PO TID 07/23/21 07/23/21 Unknown History Insulin Aspart (Nf) [NovoLOG 100 1 - 6 units SQ UNK PRN 07/23/21 07/23/21 Unknown History UNITS/ML VIAL] Levothyroxine [Synthroid] 100 mcg PO QAM 07/23/21 07/23/21 07/22/21 History Meloxicam [Mobic] 7.5 mg PO QDAY 07/23/21 07/23/21 Unknown History Oxycodone HCl/Acetaminophen 1 - 2 tab PO Q6H 07/23/21 07/23/21 Unknown History [Oxycodone-Acetaminophn 7.5-325] Quetiapine Fumarate [SEROquel] 50 mg PO QHS 07/23/21 07/23/21 Unknown History Sertraline [Zoloft] 25 mg PO QDAY 07/23/21 07/24/21 Unknown History hydrOXYzine HCL [Atarax] 25 mg PO QHS 07/23/21 07/23/21 Unknown History Active Meds: Active Medications Acetaminophen (Acetaminophen 325 Mg Tab) 325 mg PO Q4H PRN PRN Reason: Pain, Moderate (4-6) Last Admin: 07/29/21 09:24 Dose: 325 mg Dextrose (Dextrose 10% *Hypoglycemia) 0 ml IV PRN PRN PRN Reason: Hypoglycemia Divalproex Sodium (Divalproex Dr 125 Mg Tab) 125 mg PO BID [facility] Last Admin: 07/29/21 09:22 Dose: 125 mg Gabapentin (Gabapentin 300 Mg Cap) 300 mg PO TID [facility] Last Admin: 07/29/21 09:21 Dose: 300 mg Hydroxyzine HCl (Hydroxyzine Hcl 25 Mg Tab) 25 mg PO QHS [facility] Last Admin: 07/28/21 21:32 Dose: 25 mg Insulin Glargine (Insulin Glargine 100 Units/Ml) 10 units SUB-Q QHS [facility] Last Admin: 07/28/21 21:30 Dose: 10 units Insulin Human Lispro (Insulin Lispro 100 Unit/Ml) 0 unit SUB-Q [facility]; Prot ocol Last Admin: 07/28/21 21:31 Dose: 3 unit Levothyroxine Sodium (Levothyroxine 100 Mcg Tab) 100 mcg PO DAILY@0600 [facility] Last Admin: 07/29/21 07:11 Dose: 100 mcg Meloxicam (Meloxicam 7.5 Mg Tab) 7.5 mg PO QDAY [facility] Last Admin: 07/29/21 09:22 Dose: 7.5 mg Oxycodone HCl (Oxycodone 5 Mg Tab) 7.5 mg PO Q4H PRN PRN Reason: Pain, Moderate (4-6) Last Admin: 07/29/21 09:23 Dose: 7.5 mg Quetiapine Fumarate (Quetiapine 25 Mg Tab) 50 mg PO BID [facility] Last Admin: 07/29/21 09:21 Dose: 50 mg Sertraline HCl (Sertraline 25 Mg Tab) 25 mg PO QDAY [facility] Last Admin: 07/29/21 09:21 Dose: 25 mg Trazodone HCl (Trazodone 50 Mg Tab) 50 mg PO QHS [facility] Last Admin: 07/28/21 21:32 Dose: 50 mg Results - Results Labs/Vitals: Laboratory Last Values WBC 7.1 K/mm3 (4.5-11.0) 07/24/21 20:58 RBC 3.96 M/mm3 (3.65-5.03) 07/24/21 20:58 Hgb 9.9 gm/dl (10.1-14.3) L 07/24/21 20:58 Hct 31.8 % (30.3-42.9) 07/24/21 20:58 MCV 80 fl (79-97) 07/24/21 20:58 MCH 25 pg (28-32) L 07/24/21 20:58 MCHC 31 % (30-34) 07/24/21 20:58 RDW 15.0 % (13.2-15.2) 07/24/21 20:58 Plt Count 413 K/mm3 (140-440) 07/24/21 20:58 Lymph % (Auto) 28.0 % (13.4-35.0) 07/24/21 20:58 [place] % (Auto) 8.8 % (0.0-7.3) H 07/24/21 20:58 Eos % (Auto) 1.1 % (0.0-4.3) 07/24/21 20:58 Baso % (Auto) 1.1 % (0.0-1.8) 07/24/21 20:58 Lymph # (Auto) 2.0 K/mm3 (1.2-5.4) 07/24/21 20:58 [place] # (Auto) 0.6 K/mm3 (0.0-0.8) 07/24/21 20:58 Eos # (Auto) 0.1 K/mm3 (0.0-0.4) 07/24/21 20:58 Baso # (Auto) 0.1 K/mm3 (0.0-0.1) 07/24/21 20:58 Seg Neutrophils % 61.0 % (40.0-70.0) 07/24/21 20:58 Seg Neutrophils # 4.3 K/mm3 (1.8-7.7) 07/24/21 20:58 Sodium 135 mmol/L (137-145) L 07/24/21 20:58 Potassium 4.0 mmol/L (3.6-5.0) 07/24/21 20:58 Chloride 96.7 mmol/L (98-107) L 07/24/21 20:58 Carbon Dioxide 25 mmol/L (22-30) 07/24/21 20:58 Anion Gap 17 mmol/L 07/24/21 20:58 BUN 26 mg/dL (7-17) H 07/24/21 20:58 Creatinine 1.4 mg/dL (0.6-1.2) H 07/24/21 20:58 Estimated GFR 43 ml/min 07/24/21 20:58 BUN/Creatinine Ratio 19 % 07/24/21 20:58 Glucose 209 mg/dL (65-100) H 07/24/21 20:58 POC Glucose 232 mg/dL (70-105) H 07/29/21 07:01 Hemoglobin A1c 8.6 % (4-6) H 07/24/21 20:58 Calcium 9.6 mg/dL (8.4-10.2) 07/24/21 20:58 Total Bilirubin 0.30 mg/dL (0.1-1.2) 07/24/21 20:58 AST 22 units/L (5-40) 07/24/21 20:58 ALT 16 units/L (7-56) 07/24/21 20:58 Alkaline Phosphatase 79 units/L (35-129) 07/24/21 20:58 Total Protein 7.3 g/dL (6.3-8.2) 07/24/21 20:58 Albumin 3.9 g/dL (3.9-5) 07/24/21 20:58 Albumin/Globulin Ratio 1.1 % 07/24/21 20:58 Triglycerides 126 mg/dL (2-149) 07/24/21 20:58 Cholesterol 182 mg/dL (50-199) 07/24/21 20:58 LDL Cholesterol Direct 92 mg/dL (50-130) 07/24/21 20:58 HDL Cholesterol 69 mg/dL (40-59) H 07/24/21 20:58 Cholesterol/HDL Ratio 2.63 % 07/24/21 20:58 TSH 3.860 mlU/mL (0.270-4.200) 07/24/21 20:58 Hepatitis A IgM Ab Non-reactive (NonReactive) 07/24/21 20:58 Hep Bs Antigen Non-reactive (Negative) 07/24/21 20:58 Hep B Core IgM Ab Non-reactive (NonReactive) 07/24/21 20:58 Hepatitis C Antibody Non-reactive (NonReactive) 07/24/21 20:58 Last Vital Signs Temp 98.3 F 07/28/21 19:23 Pulse 78 07/28/21 19:23 Resp 17 07/28/21 19:23 BP 153/74 07/28/21 19:23 Pulse Ox 97 07/28/21 19:23
[2021-07-29] MEDS: hydrOXYzine HCL 25 MG TAB PO SCH (21:20)
[2021-07-29] MEDS: traZODone 50 MG TAB PO SCH (21:21)
[2021-07-29] MEDS: INSULIN GLARGINE 100 UNITS/ML SUB-Q SCH (22:00)
[2021-07-30] MEDS: LEVOTHYROXINE 100 MCG TAB PO SCH (05:53)
[2021-07-30] MEDS: INSULIN LISPRO 100 UNIT/ML SUB-Q SCH ×4 (07:14→21:47)
[2021-07-30] MEDS: GABAPENTIN 300 MG CAP PO SCH ×3 (07:55→20:15)
[2021-07-30] MEDS: DIVALPROEX DR 125 MG TAB PO SCH ×2 (09:08→20:15)
[2021-07-30] MEDS: SERTRALINE 25 MG TAB PO SCH (09:08)
[2021-07-30] MEDS: MELOXICAM 7.5 MG TAB PO SCH (09:09)
[2021-07-30] MEDS: QUEtiapine 25 MG TAB PO SCH ×2 (09:09→20:15)
--- NOTE | 2021-07-30 11:17 | Discharge Summary ---
Providers - Providers Date of Admission: 07/23/21 21:24 Date of discharge: 07/30/21 Attending physician: BOOM GOLD MD 07/23/21 19:21 Consult to Physician [CONS] Routine Comment: Consulting Provider: ABIGAIL CHENG Physician Instructions: Reason For Exam: Manage existing medical problems 07/24/21 07:50 Consult to Wound/ET Nurse [CONS] Routine Reason For Exam: Wound eval for Left Total Knee Replacement 07/13/21 07/26/21 13:17 Physical Therapy Evaluation and Treat [CONS] Routine Comment: Reason For Exam: left knee weakness Primary care physician: CAR STORER Hospitalization Reason for admission: agitation Admitting Diagnosis: F02.81 - DEMENTIA IN OTH DISEASES CLASSD ELSWHR W BEHAVIORAL DISTURB Condition: Stable Hospital course: The patient was provided inpatient psychiatric treatment with safe and supportive environment, group/individual therapy, psychiatric medication, medication adjustment, adverse effect monitor, medical evaluation, medical treatment, social service assessment, social support meeting, placement assessment and psycho-education. The patients mood, cognition, behavior, motivation, compliance to treatment and appreciation on family/social support are improved and stabilized. At the time of discharge, the patient had no suicidal ideas, no homicidal ideas, no aggressive thoughts, no endangering behavior and no debilitating adverse effects. The patient agreed on the treatment plan, understood the risk, benefit, alternative treatment, potential consequence of no treatment, and gave informed consent. Disposition: 01 HOME / SELF CARE / HOMELESS Time spent for discharge: 35 Allergies/Adverse Reactions: Allergies Penicillins Allergy (Verified 03/03/18 02:43) Hives Vital Signs: Last Vital Signs Temp 98.8 F 07/30/21 09:01 Pulse 85 07/30/21 09:01 Resp 18 07/30/21 09:01 BP 147/72 07/30/21 09:01 Pulse Ox 99 07/30/21 09:01 Last Lab: Laboratory Last Values WBC 7.1 K/mm3 (4.5-11.0) 07/24/21 20:58 RBC 3.96 M/mm3 (3.65-5.03) 07/24/21 20:58 Hgb 9.9 gm/dl (10.1-14.3) L 07/24/21 20:58 Hct 31.8 % (30.3-42.9) 07/24/21 20:58 MCV 80 fl (79-97) 07/24/21 20:58 MCH 25 pg (28-32) L 07/24/21 20:58 MCHC 31 % (30-34) 07/24/21 20:58 RDW 15.0 % (13.2-15.2) 07/24/21 20:58 Plt Count 413 K/mm3 (140-440) 07/24/21 20:58 Lymph % (Auto) 28.0 % (13.4-35.0) 07/24/21 20:58 [place] % (Auto) 8.8 % (0.0-7.3) H 07/24/21 20:58 Eos % (Auto) 1.1 % (0.0-4.3) 07/24/21 20:58 Baso % (Auto) 1.1 % (0.0-1.8) 07/24/21 20:58 Lymph # (Auto) 2.0 K/mm3 (1.2-5.4) 07/24/21 20:58 [place] # (Auto) 0.6 K/mm3 (0.0-0.8) 07/24/21 20:58 Eos # (Auto) 0.1 K/mm3 (0.0-0.4) 07/24/21 20:58 Baso # (Auto) 0.1 K/mm3 (0.0-0.1) 07/24/21 20:58 Seg Neutrophils % 61.0 % (40.0-70.0) 07/24/21 20:58 Seg Neutrophils # 4.3 K/mm3 (1.8-7.7) 07/24/21 20:58 Sodium 135 mmol/L (137-145) L 07/24/21 20:58 Potassium 4.0 mmol/L (3.6-5.0) 07/24/21 20:58 Chloride 96.7 mmol/L (98-107) L 07/24/21 20:58 Carbon Dioxide 25 mmol/L (22-30) 07/24/21 20:58 Anion Gap 17 mmol/L 07/24/21 20:58 BUN 26 mg/dL (7-17) H 07/24/21 20:58 Creatinine 1.4 mg/dL (0.6-1.2) H 07/24/21 20:58 Estimated GFR 43 ml/min 07/24/21 20:58 BUN/Creatinine Ratio 19 % 07/24/21 20:58 Glucose 209 mg/dL (65-100) H 07/24/21 20:58 POC Glucose 174 mg/dL (70-105) H 07/30/21 07:09 Hemoglobin A1c 8.6 % (4-6) H 07/24/21 20:58 Calcium 9.6 mg/dL (8.4-10.2) 07/24/21 20:58 Total Bilirubin 0.30 mg/dL (0.1-1.2) 07/24/21 20:58 AST 22 units/L (5-40) 07/24/21 20:58 ALT 16 units/L (7-56) 07/24/21 20:58 Alkaline Phosphatase 79 units/L (35-129) 07/24/21 20:58 Total Protein 7.3 g/dL (6.3-8.2) 07/24/21 20:58 Albumin 3.9 g/dL (3.9-5) 07/24/21 20:58 Albumin/Globulin Ratio 1.1 % 07/24/21 20:58 Triglycerides 126 mg/dL (2-149) 07/24/21 20:58 Cholesterol 182 mg/dL (50-199) 07/24/21 20:58 LDL Cholesterol Direct 92 mg/dL (50-130) 07/24/21 20:58 HDL Cholesterol 69 mg/dL (40-59) H 07/24/21 20:58 Cholesterol/HDL Ratio 2.63 % 07/24/21 20:58 TSH 3.860 mlU/mL (0.270-4.200) 07/24/21 20:58 Hepatitis A IgM Ab Non-reactive (NonReactive) 07/24/21 20:58 Hep Bs Antigen Non-reactive (Negative) 07/24/21 20:58 Hep B Core IgM Ab Non-reactive (NonReactive) 07/24/21 20:58 Hepatitis C Antibody Non-reactive (NonReactive) 07/24/21 20:58 Core Measure Documentation - Palliative Care Palliative Care/ Comfort Measures: Not Applicable - Core Measures Any of the following diagnoses?: none Exam - Constitutional Vitals: Temp Pulse Resp BP Pulse Ox 98.8 F 85 18 147/72 99 07/30/21 09:01 07/30/21 09:01 07/30/21 09:01 07/30/21 09:01 07/30/21 09:01 General appearance: Present: no acute distress - EENT Eyes: Present: PERRL, EOM intact ENT: hearing intact, clear oral mucosa - Neck Neck: Present: supple, normal ROM - Respiratory Respiratory effort: normal Plan Activity: advance as tolerated Weight Bearing Status: Weight Bear as Tolerated Care Plan Goals: Maintain good and stable mental health Plan of Treatment: The patient should be compliant with medications, not to use drugs and not to drink alcohol.The patient understands that if suicidal ideas, homicidal ideas, or any endangering thoughts/behavior arise, they should immediately seek for emergent assistance including but not limited to crisis hot line and emergency room. Follow up with outpatient Psychiatrist and PCP within 7 - 14 days of discharge. Assessment: Neurocogntive w/Behavioral Disturbance Follow up with: PRIMARY CARE, [Primary Care Provider] - 7 Days Prescriptions: traZODone [Desyrel] 50 mg PO QHS #30 tablet QUEtiapine [SEROquel] 50 mg PO BID #120 tablet Sertraline [Zoloft] 25 mg PO QDAY #30 tablet
[2021-07-30] MEDS: oxyCODONE 5 MG TAB PO PRN (12:00)
[2021-07-30] MEDS: ACETAMINOPHEN 325 MG TAB PO PRN ×2 (12:00→20:15)
--- NOTE | 2021-07-30 13:24 | Progress Note ---
History Interval history: 81-year-old female with pmhx of DM2, hypothyroidism, recent left knee procedure admitted for acute psychosis. Per report, patient hallucinating, hearing voices, seeing things and threatening daughter and caregiver. Internal medicine service consulted for medical management. On my encounter, patient only complaint was pain in left knee this AM. She states that pain has been uncontrolled. She states that the only pain medication should like to avoid is oxycontin as "the last place I got that, I got short of breath". Patient states she is otherwise recovering well. She states that since the procedure she has be en able to walk properly. Patient denied any GOLDSTEIN, CP, SOB, N/V/D/C, abdominal pain. Remainder of ROS negative except for stated above. Regarding her type 2 diabetes, the patient states she takes 10 units regular insulin with meals and 20 units long acting at night. She could not recall her A1c or fasting blood sugars. Past History Past Medical History: diabetes, hypothyroidism Past Surgical History: total knee replacement Social history: smoking (smokes when she can but does not smoke consistently.) Family history: no significant family history Hospitalist Physical - Constitutional Vitals: Temp Pulse Resp BP Pulse Ox 98.8 F 85 18 147/72 99 07/30/21 09:01 07/30/21 09:01 07/30/21 12:00 07/30/21 09:01 07/30/21 09:01 General appearance: Present: no acute distress Results - Labs CBC & Chem 7: 07/24/21 20:58 07/24/21 20:58 Labs: Laboratory Last Values WBC 7.1 K/mm3 (4.5-11.0) 07/24/21 20:58 RBC 3.96 M/mm3 (3.65-5.03) 07/24/21 20:58 Hgb 9.9 gm/dl (10.1-14.3) L 07/24/21 20:58 Hct 31.8 % (30.3-42.9) 07/24/21 20:58 MCV 80 fl (79-97) 07/24/21 20:58 MCH 25 pg (28-32) L 07/24/21 20:58 MCHC 31 % (30-34) 07/24/21 20:58 RDW 15.0 % (13.2-15.2) 07/24/21 20:58 Plt Count 413 K/mm3 (140-440) 07/24/21 20:58 Lymph % (Auto) 28.0 % (13.4-35.0) 07/24/21 20:58 Falls % (Auto) 8.8 % (0.0-7.3) H 07/24/21 20:58 Eos % (Auto) 1.1 % (0.0-4.3) 07/24/21 20:58 Baso % (Auto) 1.1 % (0.0-1.8) 07/24/21 20:58 Lymph # (Auto) 2.0 K/mm3 (1.2-5.4) 07/24/21 20:58 Falls # (Auto) 0.6 K/mm3 (0.0-0.8) 07/24/21 20:58 Eos # (Auto) 0.1 K/mm3 (0.0-0.4) 07/24/21 20:58 Baso # (Auto) 0.1 K/mm3 (0.0-0.1) 07/24/21 20:58 Seg Neutrophils % 61.0 % (40.0-70.0) 07/24/21 20:58 Seg Neutrophils # 4.3 K/mm3 (1.8-7.7) 07/24/21 20:58 Sodium 135 mmol/L (137-145) L 07/24/21 20:58 Potassium 4.0 mmol/L (3.6-5.0) 07/24/21 20:58 Chloride 96.7 mmol/L (98-107) L 07/24/21 20:58 Carbon Dioxide 25 mmol/L (22-30) 07/24/21 20:58 Anion Gap 17 mmol/L 07/24/21 20:58 BUN 26 mg/dL (7-17) H 07/24/21 20:58 Creatinine 1.4 mg/dL (0.6-1.2) H 07/24/21 20:58 Estimated GFR 43 ml/min 07/24/21 20:58 BUN/Creatinine Ratio 19 % 07/24/21 20:58 Glucose 209 mg/dL (65-100) H 07/24/21 20:58 POC Glucose 172 mg/dL (70-105) H 07/30/21 11:12 Hemoglobin A1c 8.6 % (4-6) H 07/24/21 20:58 Calcium 9.6 mg/dL (8.4-10.2) 07/24/21 20:58 Total Bilirubin 0.30 mg/dL (0.1-1.2) 07/24/21 20:58 AST 22 units/L (5-40) 07/24/21 20:58 ALT 16 units/L (7-56) 07/24/21 20:58 Alkaline Phosphatase 79 units/L (35-129) 07/24/21 20:58 Total Protein 7.3 g/dL (6.3-8.2) 07/24/21 20:58 Albumin 3.9 g/dL (3.9-5) 07/24/21 20:58 Albumin/Globulin Ratio 1.1 % 07/24/21 20:58 Triglycerides 126 mg/dL (2-149) 07/24/21 20:58 Cholesterol 182 mg/dL (50-199) 07/24/21 20:58 LDL Cholesterol Direct 92 mg/dL (50-130) 07/24/21 20:58 HDL Cholesterol 69 mg/dL (40-59) H 07/24/21 20:58 Cholesterol/HDL Ratio 2.63 % 07/24/21 20:58 TSH 3.860 mlU/mL (0.270-4.200) 07/24/21 20:58 Hepatitis A IgM Ab Non-reactive (NonReactive) 07/24/21 20:58 Hep Bs Antigen Non-reactive (Negative) 07/24/21 20:58 Hep B Core IgM Ab Non-reactive (NonReactive) 07/24/21 20:58 Hepatitis C Antibody Non-reactive (NonReactive) 07/24/21 20:58 Person/IV: Voiding Method Toilet Active Medications - Current Medications Current Medications: Generic Name Dose Route Start Last Admin Trade Name Freq PRN Reason Stop Dose Admin Acetaminophen 325 mg 07/24/21 10:00 07/30/21 12:00 Acetaminophen 325 Mg Tab PO 325 mg Q4H PRN Administration Pain, Moderate (4-6) Dextrose 0 ml 07/24/21 15:00 Dextrose 10% *Hypoglycemia IV PRN PRN Hypoglycemia Divalproex Sodium 125 mg 07/28/21 10:00 07/30/21 09:[address] 125 Mg Tab PO 125 mg BID DOMINIQUE Administration Gabapentin 300 mg 07/24/21 14:00 07/30/21 13:08 Gabapentin 300 Mg Cap PO 300 mg TID DOMINIQUE Administration Hydroxyzine HCl 25 mg 07/24/21 22:00 07/29/21 21:20 Hydroxyzine Hcl 25 Mg Tab PO 25 mg QHS DOMINIQUE Administration Insulin Glargine 10 units 07/27/21 22:00 07/29/21 22:00 Insulin Glargine 100 Units/Ml SUB-Q 10 units QHS DOMINIQUE Administration Insulin Human Lispro 0 unit 07/24/21 16:30 07/30/21 11:36 Insulin Lispro 100 Unit/Ml SUB-Q 2 unit ACHS DOMINIQUE Administration Protocol Levothyroxine Sodium 100 mcg 07/24/21 09:00 07/30/21 05:53 Levothyroxine 100 Mcg Tab PO 100 mcg DAILY@0600 DOMINIQUE Administration Meloxicam 7.5 mg 07/24/21 10:00 07/30/21 09:09 Meloxicam 7.5 Mg Tab PO 7.5 mg QDAY DOMINIQUE Administration Oxycodone HCl 7.5 mg 07/24/21 10:00 07/30/21 12:00 Oxycodone 5 Mg Tab PO 7.5 mg Q4H PRN Administration Pain, Moderate (4-6) Quetiapine Fumarate 50 mg 07/27/21 13:00 07/30/21 09:09 Quetiapine 25 Mg Tab PO 50 mg BID DOMINIQUE Administration Sertraline HCl 25 mg 07/24/21 10:00 07/30/21 09:08 Sertraline 25 Mg Tab PO 25 mg QDAY DOMINIQUE Administration Trazodone HCl 50 mg 07/23/21 22:00 07/29/21 21:21 Trazodone 50 Mg Tab PO 50 mg QHS DOMINIQUE Administration
[2021-07-30] MEDS: hydrOXYzine HCL 25 MG TAB PO SCH (20:15)
[2021-07-30] MEDS: traZODone 50 MG TAB PO SCH (20:15)
[2021-07-30 20:29] VITALS: BP 150/74
[2021-07-30] MEDS: INSULIN GLARGINE 100 UNITS/ML SUB-Q SCH (21:47)
== END 2021-07-30 20:22 | disposition home or self-care (01) | DRG 884 ==
LOC: 3A 16:47 → UNDOADMIN 16:47 → 5A 21:24
PROVIDERS: ADMIT Psychiatry & Neurology Psychiatry; ATTEND Psychiatry & Neurology Psychiatry
DX: F01.51 Vascular dementia, unspecified severity, with behavioral disturbance (principal); F23 Brief psychotic disorder; E03.9 Hypothyroidism, unspecified; E11.9 Type 2 diabetes mellitus without complications; F22 Delusional disorders; F03.90 Unspecified dementia, unspecified severity, without behavioral disturbance, psychotic disturbance, mood disturbance, and anxiety; Z96.653 Presence of artificial knee joint, bilateral; Z20.822 Contact with and (suspected) exposure to COVID-19; F17.200 Nicotine dependence, unspecified, uncomplicated; Z91.83 Wandering in diseases classified elsewhere; Z79.899 Other long term (current) drug therapy; Z88.0 Allergy status to penicillin; Z79.4 Long term (current) use of insulin
CPT/HCPCS: 36415; 80053; 80061; 80074; 82962; 83036; 84443; 85025; G0378; Q0177; Q9967; J1815